=== PATIENT | male | born 1930 | race Caucasian/White ===

== ENCOUNTER 2017-07-08 01:34 | Emergency (ER) | payer OTHER, MEDICARE ==
[~2017-07-08] VITALS: Ht 175.3 cm; Wt 90.0 kg
[2017-07-08] MEDS ORDERED: etomidate 2mg/ml inj. IV ONE ×2 (01:55→02:00)
[2017-07-08] MEDS ORDERED: adenosine 3mg/ml 2ml vial IV ONE ×3 (02:00→08:00)
[2017-07-08] MEDS ORDERED: normal saline 1000ML IV soln IVB ONE (02:00)
[2017-07-08 02:11] LABS: BASOPHILS % (AUTO) 0.4 % (0-1); EOSINOPHILS # (AUTO) 0.3 X10'3 (0-0.9); HEMATOCRIT 32.4 % (42.0-52.0); HEMOGLOBIN 10.9 g/dl (14.0-17.9); LYMPHOCYTES # (AUTO) 2.4 X10'3 (1.1-4.8); LYMPHOCYTES % (AUTO) 30.7 % (21-51); MEAN CORPUSCULAR HEMOGLOBIN 30.9 PG (27.0-31.0); MEAN CORPUSCULAR HGB CONC 33.5 % (33.0-36.5); MEAN CORPUSCULAR VOLUME 92.3 FL (78-98); MEAN PLATELET VOLUME 9.8 FL (7.4-10.4); MONOCYTES # (AUTO) 1.1 X10'3 (0-0.9); MONOCYTES % (AUTO) 14.7 % (2-12); NEUTROPHILS # (AUTO) 3.9 X10'3 (1.8-7.7); NEUTROPHILS % (AUTO) 50.2 % (42-75); PLATELET COUNT 156 X10'3 (140-440); RED BLOOD COUNT 3.52 X10'6 (4.70-6.10); RED CELL DISTRIBUTION WIDTH 14.7 % (11.5-14.5); WHITE BLOOD COUNT 7.7 X10'3 (4.5-11.0)
[2017-07-08 02:22] LABS: PARTIAL THROMBOPLASTIN TIME 25 SECONDS (22-32); PROTHROMBIN TIME 10.8 SECONDS (9.0-12.0)
[2017-07-08 02:32] LABS: ALANINE AMINOTRANSFERASE 29 U/L (12-78); ALBUMIN 3.4 G/DL (3.4-5.0); ALBUMIN/GLOBULIN RATIO 1.1 (1.1-1.5); ALKALINE PHOSPHATASE 66 IU/L (46-116); ANION GAP 9 (8-16); ASPARTATE AMINO TRANSFERASE 15 U/L (10-37); BILIRUBIN,TOTAL 0.4 MG/DL (0.1-1.0); BLOOD UREA NITROGEN 30 MG/DL (7-18); BUN/CREATININE RATIO 18.2 (5.4-32.0); CHLORIDE 107 MMOL/L (99-107); CREATININE 1.65 MG/DL (0.60-1.10); GLUCOSE 158 MG/DL (70-104); MAGNESIUM 1.8 MG/DL (1.5-2.4); POTASSIUM 3.4 MMOL/L (3.5-5.1); SODIUM 143 MMOL/L (135-145); TOTAL CARBON DIOXIDE 27.1 MMOL/L (24-32); TOTAL PROTEIN 6.4 G/DL (6.4-8.2); eGFR 40 ML/MIN
[2017-07-08 03:13] VITALS: BP 131/60
== END 2017-07-08 03:16 | disposition home or self-care (01) ==
LOC: ER 01:35
DX: R00.0 Tachycardia, unspecified (principal); I49.9 Cardiac arrhythmia, unspecified; Z98.61 Coronary angioplasty status
CPT/HCPCS: 36415; 71045; 80053; 83735; 83880; 84484; 85025; 85610; 85730; 92960; 93005; 96360; 99291; J0153; J3490; J7030; A4620

== ENCOUNTER 2017-08-02 06:02 | Observation (INO) | payer MEDICARE ==
[2017-08-01 13:01] LABS: BASOPHILS % (AUTO) 0.6 % (0-1); EOSINOPHILS # (AUTO) 0.2 X10'3 (0-0.9); EOSINOPHILS % (AUTO) 3.6 % (0-6); HEMATOCRIT 34.4 % (42.0-52.0); HEMOGLOBIN 11.4 g/dl (14.0-17.9); LYMPHOCYTES # (AUTO) 1.3 X10'3 (1.1-4.8); LYMPHOCYTES % (AUTO) 19.8 % (21-51); MEAN CORPUSCULAR HEMOGLOBIN 30.6 PG (27.0-31.0); MEAN CORPUSCULAR HGB CONC 33.2 % (33.0-36.5); MEAN CORPUSCULAR VOLUME 92.3 FL (78-98); MEAN PLATELET VOLUME 10.1 FL (7.4-10.4); MONOCYTES # (AUTO) 0.8 X10'3 (0-0.9); MONOCYTES % (AUTO) 12.6 % (2-12); NEUTROPHILS # (AUTO) 4.1 X10'3 (1.8-7.7); NEUTROPHILS % (AUTO) 63.4 % (42-75); PLATELET COUNT 187 X10'3 (140-440); RED BLOOD COUNT 3.72 X10'6 (4.70-6.10); RED CELL DISTRIBUTION WIDTH 15.2 % (11.5-14.5); WHITE BLOOD COUNT 6.4 X10'3 (4.5-11.0)
[2017-08-01 13:09] LABS: PARTIAL THROMBOPLASTIN TIME 24 SECONDS (22-32); PROTHROMBIN TIME 10.8 SECONDS (9.0-12.0)
[2017-08-01 13:12] LABS: ALBUMIN 3.5 G/DL (3.4-5.0); ANION GAP 7 (8-16); BLOOD UREA NITROGEN 32 MG/DL (7-18); BUN/CREATININE RATIO 18.5 (5.4-32.0); CALCIUM 8.8 MG/DL (8.5-10.1); CHLORIDE 106 MMOL/L (99-107); CREATININE 1.73 MG/DL (0.60-1.10); GLUCOSE 101 MG/DL (70-104); POTASSIUM 4.3 MMOL/L (3.5-5.1); SODIUM 144 MMOL/L (135-145); TOTAL CARBON DIOXIDE 30.6 MMOL/L (24-32); eGFR 38 ML/MIN
[2017-08-02] VITALS (37 sets, daily range): BP systolic 127–186; BP diastolic 31–95
[~2017-08-02] VITALS: Ht 175.3 cm; Wt 91.9 kg
[2017-08-02] MEDS ORDERED: LORazepam 0.5 MG tablet PO ONE (07:25)
[2017-08-02] MEDS ORDERED: sodium bicarbonate (8.4%) inj. 150 MEQ in sodium chloride 0.45% 850 ML IV SCH (07:25)
[2017-08-02] MEDS ORDERED: diphenhydrAMINE 25mg capsule PO ONE (07:25)
[2017-08-02] MEDS: normal saline 1000ml 1,000 ML IV SCH ×3 (07:34→21:51)
[2017-08-02] MEDS ORDERED: CARV-50 PO (07:49)
[2017-08-02] MEDS ORDERED: PRAV40TA3 PO (07:49)
[2017-08-02] MEDS ORDERED: LOSA50TA3 PO (07:49)
[2017-08-02] MEDS ORDERED: FLO0.4C PO (07:49)
[2017-08-02] MEDS ORDERED: AMIO200T57 PO (07:49)
[2017-08-02] MEDS ORDERED: acetylcysteine 200 MG/ml 4ml vial PO ONE ×2 (07:55→18:20)
[2017-08-02] MEDS ORDERED: fentaNYL/PF 50MCG/1 ML 2ML syringe ONE (08:21)
[2017-08-02] MEDS ORDERED: LIDOcaine 1%/PF (10mg/ml) 5ml vial ONE (08:21)
[2017-08-02] MEDS ORDERED: midazolam 2 mg/2 ml injection ONE (08:21)
[2017-08-02] MEDS ORDERED: nitroGLYCERIN-Tridil 50MG/D5W 250 ML IV ONE (08:21)
[2017-08-02] MEDS ORDERED: heparin 1,000unit/ml 10ml vial 10 ML ONE (08:21)
[2017-08-02] MEDS ORDERED: iohexol 350MG/ML 100ml bottle IV ONE (08:21)
[2017-08-02] MEDS ORDERED: iohexol 350 MG/ML 50ML vial IV ONE (08:21)
[2017-08-02] MEDS ORDERED: cyclobenzaprine 10mg tablet PO PRN ×2 (10:40→18:30)
[2017-08-02] MEDS ORDERED: morphine 10mg/ml inj. IV PRN (10:40)
[2017-08-02] MEDS ORDERED: acetaminophen 325mg tablet PO PRN ×2 (10:40→18:30)
[2017-08-02] MEDS ORDERED: aspirin 81mg tab.chew PO ONE (10:40)
[2017-08-02] MEDS ORDERED: magnesium hydroxide 30ml (MOM) UD suspension PO PRN ×2 (10:40→18:30)
[2017-08-02] MEDS ORDERED: OXAZEpam 15mg capsule PO PRN ×2 (10:40→18:30)
[2017-08-02] MEDS ORDERED: proCHLORperazine 10 MG/2 ml inj IV PRN (10:40)
[2017-08-02] MEDS ORDERED: heparin 10,000 units/1 ML INJ IV PRN (13:40)
[2017-08-02] MEDS ORDERED: HYDROcodone/acetaminophen 10/325mg tab PO PRN (18:30)
[2017-08-02] MEDS: HYDROcodone/acetaminophen 10/325mg tab PO PRN ×2 (18:31→22:23)
[2017-08-02] MEDS: sodium bicarbonate (8.4%) inj. 150 MEQ in sodium chloride 0.45% 850 ML IV SCH (18:59)
[2017-08-02 19:16] LABS: ISTAT HGB ART 10.2 g/dl (14.0-18.0); ISTAT Hct ART 30 %PCV (42-52); ISTAT Hct MIX 30 %PCV (42-52); ISTAT O2 SATURATION ARTERIAL 99 % (95-98); ISTAT O2 SATURATION MIX VENOUS 72 % (60-80); ISTAT SOURCE ART; ISTAT SOURCE MIX
[2017-08-02] MEDS: carvedilol 6.25mg tablet PO SCH (20:00)
[2017-08-02] MEDS ORDERED: docusate sod 100mg capsule PO SCH (20:00)
[2017-08-02] MEDS: nitroGLYCERIN-Tridil 50MG/D5W 250 ML IV PRN (20:47)
[2017-08-02 20:50] LABS: PARTIAL THROMBOPLASTIN TIME 28 SECONDS (22-32)
[2017-08-02] MEDS: docusate sod 100mg capsule PO SCH (21:02)
[2017-08-02] MEDS: pravastatin 40mg tablet PO SCH (21:05)
[2017-08-02] MEDS: acetylcysteine 200 MG/ml 4ml vial PO SCH (21:13)
[2017-08-03] VITALS (25 sets, daily range): BP systolic 132–185; BP diastolic 45–78
[2017-08-03 03:34] LABS: BASOPHILS % (AUTO) 0.3 % (0-1); EOSINOPHILS # (AUTO) 0.3 X10'3 (0-0.9); EOSINOPHILS % (AUTO) 4.3 % (0-6); HEMATOCRIT 28.6 % (42.0-52.0); HEMOGLOBIN 9.6 g/dl (14.0-17.9); LYMPHOCYTES # (AUTO) 1.2 X10'3 (1.1-4.8); LYMPHOCYTES % (AUTO) 19.1 % (21-51); MEAN CORPUSCULAR HEMOGLOBIN 30.6 PG (27.0-31.0); MEAN CORPUSCULAR HGB CONC 33.4 % (33.0-36.5); MEAN CORPUSCULAR VOLUME 91.7 FL (78-98); MEAN PLATELET VOLUME 9.8 FL (7.4-10.4); MONOCYTES # (AUTO) 0.7 X10'3 (0-0.9); MONOCYTES % (AUTO) 11.1 % (2-12); NEUTROPHILS # (AUTO) 4.3 X10'3 (1.8-7.7); NEUTROPHILS % (AUTO) 65.2 % (42-75); PLATELET COUNT 158 X10'3 (140-440); RED BLOOD COUNT 3.13 X10'6 (4.70-6.10); RED CELL DISTRIBUTION WIDTH 15.2 % (11.5-14.5); WHITE BLOOD COUNT 6.5 X10'3 (4.5-11.0)
[2017-08-03 03:42] LABS: ALBUMIN 2.7 G/DL (3.4-5.0); ANION GAP 6 (8-16); BLOOD UREA NITROGEN 25 MG/DL (7-18); BUN/CREATININE RATIO 19.5 (5.4-32.0); CALCIUM 7.4 MG/DL (8.5-10.1); CHLORIDE 107 MMOL/L (99-107); CREATININE 1.28 MG/DL (0.60-1.10); GLUCOSE 114 MG/DL (70-104); POTASSIUM 3.6 MMOL/L (3.5-5.1); SODIUM 144 MMOL/L (135-145); TOTAL CARBON DIOXIDE 31.5 MMOL/L (24-32); eGFR 53 ML/MIN
[2017-08-03] MEDS ORDERED: LIDOcaine 1%/PF (10mg/ml) 5ml vial ONE (06:52)
[2017-08-03] MEDS ORDERED: heparin 1,000unit/ml 10ml vial 20 ML ONE (06:52)
[2017-08-03] MEDS ORDERED: nitroGLYCERIN-Tridil 50MG/D5W 250 ML IV ONE (06:52)
[2017-08-03] MEDS ORDERED: iohexol 350 MG/ML 50ML vial IV ONE (06:53)
[2017-08-03] MEDS ORDERED: iohexol 350MG/ML 100ml bottle IV ONE ×2 (06:53→07:47)
[2017-08-03] MEDS: sodium bicarbonate (8.4%) inj. 150 MEQ in sodium chloride 0.45% 850 ML IV SCH ×2 (06:58→15:00)
[2017-08-03] MEDS: amiodarone 200mg tablet PO SCH (08:00)
[2017-08-03] MEDS ORDERED: clopidogrel 300mg tablet ONE (08:15)
[2017-08-03] MEDS ORDERED: aspirin 325mg tablet PO SCH (08:30)
[2017-08-03] MEDS: HYDROcodone/acetaminophen 10/325mg tab PO PRN (09:02)
[2017-08-03] MEDS ORDERED: ASPI-1 PO (09:09)
[2017-08-03] MEDS ORDERED: CARV6.253 PO (09:09)
[2017-08-03] MEDS ORDERED: CLOP75TA15 PO (09:09)
[2017-08-03] MEDS: aspirin 325mg tablet PO SCH (09:13)
[2017-08-03] MEDS: acetylcysteine 200 MG/ml 4ml vial PO SCH ×2 (09:14→20:09)
[2017-08-03] MEDS: docusate sod 100mg capsule PO SCH ×2 (09:14→20:09)
[2017-08-03] MEDS: tamsulosin 0.4mg capsule PO SCH (09:15)
[2017-08-03] MEDS: carvedilol 6.25mg tablet PO SCH ×2 (09:29→22:21)
[2017-08-03] MEDS: losartan 50mg tablet PO SCH ×2 (09:34→19:54)
[2017-08-03] MEDS: nitroGLYCERIN-Tridil 50MG/D5W 250 ML IV PRN (15:26)
[2017-08-03] MEDS: hydrALAZINE 20mg/ml inj. IV PRN (19:53)
[2017-08-03] MEDS ORDERED: losartan 50mg tablet PO ONE (20:10)
[2017-08-03] MEDS: pravastatin 40mg tablet PO SCH (22:21)
[2017-08-04] VITALS (10 sets, daily range): BP systolic 119–163; BP diastolic 46–67
[2017-08-04] MEDS: hydrALAZINE 20mg/ml inj. IV PRN (02:44)
[2017-08-04] MEDS ORDERED: LOSA50TA3 PO (06:21)
[2017-08-04] MEDS ORDERED: ASPI81TA52 PO (06:32)
[2017-08-04] MEDS: normal saline 1000ml 1,000 ML IV SCH (07:25)
[2017-08-04] MEDS: aspirin 325mg tablet PO SCH (07:58)
[2017-08-04] MEDS: losartan 50mg tablet PO SCH (07:58)
[2017-08-04] MEDS: docusate sod 100mg capsule PO SCH (07:58)
[2017-08-04] MEDS: tamsulosin 0.4mg capsule PO SCH (07:58)
[2017-08-04] MEDS: acetylcysteine 200 MG/ml 4ml vial PO SCH (07:58)
[2017-08-04] MEDS: amiodarone 200mg tablet PO SCH (08:01)
[2017-08-04] MEDS: carvedilol 6.25mg tablet PO SCH (08:01)
== END 2017-08-04 11:36 | disposition home or self-care (01) ==
LOC: SSTAY O 06:02 → ICU 2S 20:12
PROVIDERS: ADMIT Internal Medicine Cardiovascular Disease; ATTEND Internal Medicine Cardiovascular Disease
DX: I25.10 Atherosclerotic heart disease of native coronary artery without angina pectoris (principal); I10 Essential (primary) hypertension; E78.5 Hyperlipidemia, unspecified; I21.4 Non-ST elevation (NSTEMI) myocardial infarction; I47.1 Supraventricular tachycardia; I65.29 Occlusion and stenosis of unspecified carotid artery; Z79.82 Long term (current) use of aspirin; Z79.899 Other long term (current) drug therapy
CPT/HCPCS: 36415; 80048; 82803; 85014; 85025; 85347; 85610; 85730; 93005; 93460; 96365; 96366; 96368; 96375; 96376; A6257; A6258; A6449; C1725; C1760; C1769; C1874; C1887; C1894; C9600; G0378; J0360; J1644; J2001; J2250; J3010; J3490; J7030; Q0163; Q9967; 99152; 99153; A4620; J2270